=== PATIENT | female | born 1945 | race Caucasian/White ===

== ENCOUNTER → 2017-01-03 | Outpatient (CLI) | payer MEDICARE, OTHER ==
--- NOTE | 2017-01-03 17:22 | RADRPT ---
PROCEDURE: Left knee radiographs. CLINICAL INDICATION: Left knee pain. TECHNIQUE: Four views. Weight bearing. Frontal, lateral, oblique, and patellar view. COMPARISON: No prior studies are available for comparison. FINDINGS: There is no fracture or dislocation. The soft tissues are normal. The articular surfaces are intact. There is a small spur arising from the superior patella. There is no lytic or blastic lesion. There is no radiopaque foreign body. IMPRESSION: 1. Small spur arising from the superior patella. 2. Otherwise unremarkable images of the left knee. RPTAT: QQ .Juan Leahy MD, MD Date Time Electronically viewed and signed by .Juan Leahy MD, on 01/03/2017 17:21 .R/
== END | disposition home or self-care (01) ==
LOC: HKI 13:43
PROVIDERS: ATTEND Orthopaedic Surgery
DX: M25.562 Pain in left knee (principal)
CPT/HCPCS: 73564; G0463

== ENCOUNTER 2017-02-03 08:00 | Day surgery (SDC) | payer MEDICARE, OTHER | END 2017-02-03 23:00 | disposition home or self-care (01) | LOC: SDS 08:00 | PROVIDERS: ATTEND Orthopaedic Surgery | DX: Z53.9 Procedure and treatment not carried out, unspecified reason (principal) | CPT/HCPCS: 87081 ==

== ENCOUNTER → 2017-02-03 | Outpatient (CLI) | payer MEDICARE, OTHER | END | disposition home or self-care (01) | LOC: HKI 08:55 | PROVIDERS: ATTEND Orthopaedic Surgery | DX: Z01.818 Encounter for other preprocedural examination (principal); M25.562 Pain in left knee; S83.272A Complex tear of lateral meniscus, current injury, left knee, initial encounter | CPT/HCPCS: G0463 ==

== ENCOUNTER 2017-03-18 09:09 | Day surgery (SDC) | payer MEDICARE, OTHER ==
[2017-03-18] VITALS (14 sets, daily range): BP systolic 123–159; BP diastolic 63–74; PULSE 94–107; RESP 12–18; Ht 175.3 cm; Wt 84.3 kg
[~2017-03-18] VITALS: Ht 175.3 cm; Wt 84.3 kg
[~2017-03-18 09:09] MED LIST: CEFAZOLIN 2GM/50 ML (PMX) 50 ML X1 BEFORE INCISION IVPB ONE; CELECOXIB 400 MG PO X1 DOSE PO ONE; LACTATED RINGER'S 1,000 ML IV SCH; LIDOCAINE 2% (SDV) 5 ML INJ ONE; PREGABALIN 300 MG PO X1 PO ONE; oxyCODONE (CR) 10 MG TAB [oxyCONTIN] X1 DOSE PO ONE; traMADOL 50 MG TAB X 1 DOSE PO ONE
[2017-03-18] MEDS ORDERED: SIMV20TA2 PO (09:42)
[2017-03-18] MEDS ORDERED: LISI-313 PO (09:43)
[2017-03-18] MEDS ORDERED: MIRA50TA PO (09:43)
[2017-03-18] MEDS ORDERED: AMOX1TAB10 PO (09:48)
[2017-03-18] MEDS ORDERED: PREGABALIN 300 MG PO X1 PO ONE (10:00)
[2017-03-18] MEDS ORDERED: CELECOXIB 400 MG PO X1 DOSE PO ONE (10:00)
[2017-03-18] MEDS ORDERED: traMADOL 50 MG TAB X 1 DOSE PO ONE (10:00)
[2017-03-18] MEDS ORDERED: LACTATED RINGER'S 1,000 ML IV SCH (10:00)
[2017-03-18] MEDS ORDERED: CEFAZOLIN 2GM/50 ML (PMX) 50 ML X1 BEFORE INCISION IVPB ONE (10:00)
[2017-03-18] MEDS ORDERED: oxyCODONE (CR) 10 MG TAB [oxyCONTIN] X1 DOSE PO ONE (10:00)
[2017-03-18] MEDS ORDERED: LIDOCAINE 0.5%/EPI (MDV) 50 ML INJ ONE (11:49)
[2017-03-18] MEDS ORDERED: KETOROLAC 30 MG INJ ONE (11:49)
[2017-03-18] MEDS ORDERED: ROPIVACAINE 0.5 % 30 ML VIAL ONE (11:49)
--- NOTE | 2017-03-18 12:40 | HPN ---
Date/Time of Note Date/Time of Note DATE: 03/18/17 TIME: 12:40 Interval H&P Admission Note Pt. seen H&P reviewed: No system changes No change from H&P on 03/05/17 by CHANDAN Douglass MD March 18, 2017 12:40
[2017-03-18] MEDS ORDERED: morphine SULFATE/PF (10 MG/10 ML) INJ ONE (12:49)
[2017-03-18] MEDS ORDERED: FENTAnyl 50 MCG/ML VIAL ONE ×2 (12:52→13:24)
[2017-03-18] MEDS ORDERED: ROCURONIUM 50 MG INJ ONE (12:52)
[2017-03-18] MEDS ORDERED: ONDANSETRON 4 MG INJ ONE (12:52)
[2017-03-18] MEDS ORDERED: NEOSTIGMINE 3 MG/3 ML SYRINGE ONE (12:52)
[2017-03-18] MEDS ORDERED: MIDAZOLAM 1 MG/ML 2 ML INJ ONE (12:52)
[2017-03-18] MEDS ORDERED: PROPOFOL 20 ML ONE (12:52)
[2017-03-18] MEDS ORDERED: CEFAZOLIN 1 GM INJ ONE (12:52)
[2017-03-18] MEDS ORDERED: DEXAMETHASONE 4 MG/ML 1 ML INJ ONE (12:53)
[2017-03-18] MEDS ORDERED: ONDANSETRON 4 MG INJ IV PRN (13:30)
[2017-03-18] MEDS ORDERED: EPHEDrine SULFATE 50 MG/5 ML SYG IV PRN (13:30)
[2017-03-18] MEDS ORDERED: TRIMETHOBENZAMIDE 100 MG/ML VIAL IM PRN (13:30)
[2017-03-18] MEDS ORDERED: FENTAnyl 50 MCG/ML VIAL IV PRN ×3 (13:30)
[2017-03-18] MEDS ORDERED: DIPHENHYDRAMINE 50 MG INJ IV PRN (13:30)
[2017-03-18] MEDS ORDERED: hydrALAzine 20 MG INJ IV PRN (13:30)
[2017-03-18] MEDS ORDERED: HYDROmorphONE (0.2 MG/ML) 10ML SYG IV PRN ×3 (13:30)
[2017-03-18] MEDS ORDERED: LABETALOL HCL 20MG INJ IV PRN (13:30)
[2017-03-18] MEDS ORDERED: MEPERIDINE 25 MG INJ IV PRN (13:30)
[2017-03-18] MEDS ORDERED: MIDAZOLAM 1 MG/ML 2 ML INJ IV PRN (13:30)
[2017-03-18] MEDS ORDERED: ALBUTEROL 0.5% (NEB) 2.5 MG/0.5 ML AMP ONE (14:02)
[2017-03-18] MEDS ORDERED: ALBUTEROL 0.083% (NEB) 2.5 MG/3 ML AMP HHN STA (14:06)
[2017-03-18] MEDS ORDERED: IPRATROPIUM (NEB) 0.5 MG/2.5 ML AMP HHN ONE (14:30)
[2017-03-18] MEDS ORDERED: MIRABEGRON 50 MG XX SCH (15:00)
--- NOTE | 2017-03-18 15:09 | OPR ---
Date/Time of Note Date/Time of Note DATE: 03/18/17 TIME: 15:08 Operative Report Free Text/Dictation Dictation # [id number] Procedure Date: March 18, 2017 Preoperative Diagnosis Left Knee Lateral Meniscal Tear Postoperative Diagnosis Same Operation Performed Left Knee A/S and partial LM Surgeon: CHANDAN HICKEY MD assistant in nursing: GEORGI GILMORE PA-C Anesthesia: general Anesthesiologist: Andres Argueta M.D. Tourniquet Time: 0 minutes Estimated Blood Loss: minimal Specimens None Tubes/Drains None Complications: None Pt Condition Post Procedure: stable Disposition: PACU CHANDAN HICKEY MD March 18, 2017 15:09
--- NOTE | 2017-03-18 15:30 | OPR ---
DATE OF OPERATION: 03/18/2017 PREOPERATIVE DIAGNOSIS: Left knee lateral meniscal tear. POSTOPERATIVE DIAGNOSIS: Left knee lateral meniscal tear. PROCEDURE PERFORMED: Left knee arthroscopy with partial lateral meniscectomy. SURGEON: Chandan Nunez MD SPONSORSHIP MANAGER: EUSEBIO Acuna ANESTHESIOLOGIST: Andres Argueta MD TOURNIQUET TIME: 0 minutes. ESTIMATED BLOOD LOSS: Scant. INTRAVENOUS FLUIDS: 800 mL crystalloid. SPECIMENS: None. DRAINS: None. COMPLICATIONS: None. DISPOSITION: The patient tolerated the procedure well and was taken to the recovery room in stable condition. INDICATIONS: The patient is a 71-year-old woman who has had pain in the lateral aspect of her left knee with mechanical symptoms of catching and popping. An MRI demonstrated a lateral meniscal tear. I felt she would benefit from a knee arthroscopy and partial lateral meniscectomy. Risks, benefit s, alternatives of the procedure were explained in detail to the patient. I explained the risks to include, but not limited to, bleeding, infection, pain, stiffness, neurovascular injury, possible nu mbness, weakness and/or paralysis anywhere from the knee down to the toes, fracture, ligamentous inj ury, need for additional future surgery including possible total knee arthroplasty, wound healing pr oblems, blood clots, pulmonary embolism, and anesthetic complications such as heart attack, stroke, GI bleed, pneumonia and/or . Ample time was allowed for the patient to ask questions, all of w hich were addressed and answered. The patient understood the risks involved and wished to proceed. Informed consent was signed prior to the procedure. DESCRIPTION OF PROCEDURE: The left knee was initialed with a marking pen in the preoperative holdin g area to identify the correct operative site. The patient was then brought to the operating room a nd transferred from the [facility] to the operating table where she was anesthetized and intuba eligio. A tourniquet was placed on the left proximal thigh. She was given 2 grams of intravenous Ance f within 1 hour prior to the incision. The superolateral aspect of the left knee was prepped with B etadine and I injected 30 mL of 0.5% ropivacaine into the knee joint. The entire left knee and lowe r extremity were prepped and draped in the usual sterile fashion. Standard arthroscopic portal incisions were made, one inferolateral and one inferomedial. The arthr oscope was introduced into the inferolateral portal and the arthroscopy initiated. The suprapatella r pouch was inspected and free of loose bodies and synovitis. The undersurface of patella and troch lear groove looked healthy with no degenerative changes. The medial and lateral gutters were inspec eligio and free of loose bodies and synovitis. The medial compartment was inspected and the medial men iscus was intact. The medial tibial plateau looked healthy with some mild grade I chondromalacia. The medial femoral condyle had some grade III chondromalacia. The inner trochlear notch was inspect ed and the ACL and PCL were in normal position with no evidence of tearing. The lateral compartment was inspected and there was a tear of the lateral meniscus extending from th e posterior horn to the body and slightly to the anterior horn. This was debrided back to a stable edge with a combination of a shaver and Arthrocare wand. It was probed and was stable. The lateral femoral condyle had some mild grade II chondromalacia. At this point, the arthroscopy was complete d. The knee was irrigated through the arthroscope until the egress of fluid was free of meniscal fragme nts and blood. The instruments were removed. The knee was injected 30 mL of 0.5% ropivacaine, 4 mg Duramorph and 30 mg Toradol. The portal incisions were closed with interrupted 3-0 Monocryl and 3- 0 Prolene in a vertical mattress fashion. Skin edges were sealed with Dermabond. The wounds were c overed with Adaptic, 4 x 4's and wrapped with sterile cast padding and Kirk wrap. The patient was aw akened, extubated, and taken to the recovery room in stable condition. Dictated By: CHANDAN PAINTING/NTS Conf#: [id number] DID#: [id number]
[2017-03-18] MEDS ORDERED: ATORVASTATIN 10 MG TAB PO SCH (21:00)
[2017-03-19] MEDS ORDERED: NON-FORMULARY/PATIENT OWN MED (Mirabegron (Myrbetriq) 50 MG) XX SCH (09:00)
[2017-03-19] MEDS ORDERED: LISINOPRIL 5 MG TAB PO SCH (09:00)
== END 2017-03-18 16:05 | disposition home or self-care (01) ==
LOC: SDS 09:09
PROVIDERS: ATTEND Orthopaedic Surgery
DX: M23.262 Derangement of other lateral meniscus due to old tear or injury, left knee (principal); J44.9 Chronic obstructive pulmonary disease, unspecified; I10 Essential (primary) hypertension; E78.5 Hyperlipidemia, unspecified
CPT/HCPCS: 29881; 94664; J0690; J1100; J1885; J2250; J2274; J2405; J2795; J3010; J2710

== ENCOUNTER → 2017-03-26 | Outpatient (CLI) | payer MEDICARE, OTHER ==
[~2017-03-26] MED LIST changes: +AMOX1TAB10 PO; -CEFAZOLIN 2GM/50 ML (PMX) 50 ML X1 BEFORE INCISION IVPB ONE; -CELECOXIB 400 MG PO X1 DOSE PO ONE; -LACTATED RINGER'S 1,000 ML IV SCH; -LIDOCAINE 2% (SDV) 5 ML INJ ONE; +LISI-313 PO; +MIRA50TA PO; -PREGABALIN 300 MG PO X1 PO ONE; +SIMV20TA2 PO; -oxyCODONE (CR) 10 MG TAB [oxyCONTIN] X1 DOSE PO ONE; -traMADOL 50 MG TAB X 1 DOSE PO ONE
--- NOTE | 2017-03-26 14:15 | HKNOTE ---
DATE OF SERVICE: 03/26/2017 INTERVAL HISTORY: The patient presents today for her first postoperative evaluation. She is 8 days status post left knee arthroscopy and partial lateral meniscectomy. She is doing well overall. She denies any significant pain. She is ambulating without any assistive devices. She denies any fevers, chills, or adverse events. She states she is doing well and has had minimal swelling. She presents today for evaluation. PHYSICAL EXAMINATION: Today, she is alert and oriented x4 and in no acute distress. She is walking without any assistive devices and with a normal gait. Exam of the incisions demonstrated them to be clean, dry, and intact. Sutures are all in place. There is no erythema or warmth. Range of motion is 0 to 130 degrees. Varus and valgus forces are stable. Homans sign is negative. Compartments are soft. She is neurovascularly intact distally. ASSESSMENT: Eight days status post left knee arthroscopy and partial lateral meniscectomy, doing well. PLAN: The sutures were removed today and Steri-Strips were applied. An outpatient physical therapy prescription was provided today. She will begin a physical therapy program focusing on strength and range of motion. She is to avoid any lifting motions for the time being. We will see her back in 4 weeks for a repeat evaluation. She is to call the office in the meantime if she has any concerns. Dictated By: GEORGI KAPLAN for CHANDAN JOLLY/CAPO Conf#: [id number] DID#: [id number] MTDD
== END | disposition home or self-care (01) ==
LOC: HKI 10:12
PROVIDERS: ATTEND Orthopaedic Surgery
DX: Z47.1 Aftercare following joint replacement surgery (principal); Z96.652 Presence of left artificial knee joint; Z48.02 Encounter for removal of sutures

== ENCOUNTER → 2017-04-18 | Outpatient (CLI) | payer MEDICARE, OTHER | END | disposition home or self-care (01) | LOC: HKI 10:21 | PROVIDERS: ATTEND Orthopaedic Surgery | DX: M25.562 Pain in left knee (principal); S83.272D Complex tear of lateral meniscus, current injury, left knee, subsequent encounter ==